=== PATIENT | female | born 1995 | race Hispanic/Latino ===

== ENCOUNTER → 2025-01-05 12:54 | Outpatient (CLI) | payer OTHER, SELFPAY ==
--- NOTE | 2025-01-05 12:58 | DI.US.S_ITS ---
PROCEDURE: US ABDOMEN LIMITED INDICATIONS: ELEV LFT'S TECHNIQUE: Real-time focused scanning was performed of the abdomen, with image documentation. COMPARISON: None. FINDINGS: Liver measures 16 cm with steatosis. Gallbladder is absent. Common bile duct measures 8.6 mm. IMPRESSION: Hepatic steatosis. Dictated by: Daly Hedrick M.D. on 01/05/2025 at 16:39 Approved by: Daly Hedrick M.D. on 01/05/2025 at 16:39
== END ==
PROVIDERS: Referring Provider Internal Medicine; Visit Provider Internal Medicine
DX: K76.0 Fatty (change of) liver, not elsewhere classified (principal); R79.89 Other specified abnormal findings of blood chemistry; Z90.49 Acquired absence of other specified parts of digestive tract
CPT/HCPCS: 76705